=== PATIENT | female | born 1975 | race Caucasian/White ===

== ENCOUNTER 2020-05-10 09:03 | Emergency (ER) | payer OTHER, SELFPAY ==
--- NOTE | ~2020-05-10 | XR_ITS ---
EXAMINATION: XR ankle LT min 3V DATE: 05/10/2020 09:29 INDICATION: Left ankle pain TECHNIQUE: Anteroposterior, lateral, mortise, and additional oblique view of the ankle were obtained. COMPARISON: None. FINDINGS: There is no fracture, dislocation, or subluxation. The bones, soft tissues, and joint space s are normal. IMPRESSION: 1. No acute osseous abnormality. Reviewed, dictated and finalized at location A.
[2020-05-10 09:14] VITALS: BP 139/88; PULSE 82; RESP 18; TEMP 37.1; O2SAT 98
--- NOTE | 2020-05-10 09:17 | ED.LOWEXIN ---
HPI - Extremity Injury (Lower) General Chief Complaint: Extremity Injury, Lower Stated Complaint: left ankle injury Time Seen by Provider: 05/10/20 09:17 Source: patient and RN notes reviewed History of Present Illness HPI Narrative: Patient is a 44-year-old female who presents the urgent care with complaints of left foot/heel pain. Patient states that she stepped off the step this morning, felt extreme pain going through the bottom of her foot and through to her heel which then caused her to roll her left foot and ankle hearing a pop . Patient states that she has fractured the ankle in the past but denies of any foreign bodies in the lower leg/left foot ankle. Patient denies actually falling or hitting her head. Patient states she took ibuprofen prior to her arrival. No other acute complaints or injuries. No acute distress noted. Patient is ambulating on the foot. Patient aware of the plan of care. Related Data Home Medications Medication Instructions Recorded Confirmed No Home Medications 05/10/20 05/10/20 Allergies Allergy/AdvReac Type Severity Reaction Status Date / Time No Known Allergies Allergy Unknown Verified 05/10/20 09:21 Review of Systems Review of Systems: Narrative: CONSTITUTIONAL: Denies fever, chills, or sweats. EYES: Denies visual changes, redness, or discharge. ENT: Denies rhinorrhea, congestion, sore throat, or otalgia. CARDIOVASCULAR: Denies chest pain, palpitations, or edema. RESPIRATORY: Denies cough or dyspnea. GASTROINTESTINAL: Denies abdominal pain, nausea, vomiting, or diarrhea. GENITOURINARY: Denies dysuria or hematuria. SKIN: Denies rash or itching. MUSCULOSKELETAL: Reports of left foot and heel pain NEUROLOGIC: Denies headache, numbness, or weakness. All other systems reviewed are negative, except as documented in HPI. PMFSH Comments At the time of my signature, I reviewed and agree with the nursing past medical, surgical, social, and family history. There is no relevant family history pertinent to the patient complaint. Exam Narrative: Exam Narrative: GENERAL: This is a well-nourished, well-developed patient, in no apparent distress. HEAD: normocephalic, atraumatic. EYES: PERRL. Sclera clear/white. Vision is grossly intact. EARS: External ears normal NOSE: External nose normal with no obvious nasal discharge, nares without redness, no rhinorrhea. THROAT: Mucous membranes moist NECK: Neck supple SKIN: warm, intact with no suspicious lesions or rash, good texture and turgor. NEURO: awake, alert, and oriented to person, place and time. There were no obvious focal neurologic abnormalities. EXTREMITIES: Very mild edema and ecchymosis noted anterior to the medial heel/on the medial left foot. Pain with flexion. Positive strong pedal pulse with capillary refill less than 2 seconds. No obvious deformity or fracture to the left lower extremity Course Vital Signs Vital signs: Vital Signs Temperature 98.8 F 05/10/20 09:14 Pulse Rate 82 05/10/20 09:14 Respiratory Rate 18 05/10/20 09:14 Blood Pressure 139/88 05/10/20 09:14 Pulse Oximetry 98 05/10/20 09:14 Temperature 98.8 F 05/10/20 09:14 Pulse Rate 82 05/10/20 09:14 Respiratory Rate 18 05/10/20 09:14 Blood Pressure 139/88 05/10/20 09:14 Pulse Oximetry 98 05/10/20 09:14 Reviewed MDM - Extremity Injury (Lower) MDM Narrative Medical decision making narrative: Reviewed x-ray results with the patient. She is aware that x-ray was negative for fracture or deformity. Advised the patient to use the Bipin wrap as directed and wear supportive shoe if needing to ambulate. Try to refrain from weightbearing activity or any strenuous activity for the next 24 to 48 hours. Continue normal activity as tolerated. Elevate and use ice/Tylenol/ibuprofen as needed for pain. Follow-up with your PCP within 2 to 5 days or for worsening symptoms or failure to improve. Differential Diagnosis Differential diagnosis: Likely an
== END 2020-05-10 09:40 | disposition home or self-care (01) ==
PROVIDERS: Emergency Provider Nurse Practitioner Family; PCP Family Medicine
DX: M79.672 Pain in left foot (principal)
CPT/HCPCS: 73610; 99213; G0463

== ENCOUNTER 2024-06-04 11:44 | Observation (INO) | payer OTHER, SELFPAY ==
[2024-06-04] VITALS (29 sets, daily range): BP systolic 138–155; BP diastolic 67–99; PULSE 67–90; RESP 9–29; TEMP 36.5–36.9; O2SAT 96–100; BMI 33.7
--- NOTE | ~2024-06-04 | XR_ITS ---
XR chest 2V Ordering provider: Lucas Bravo MD History: 48 years Female with . mid chest pain . Comparison: June 17, 2016 FINDINGS: MEDIASTINUM: The cardiac silhouette is not enlarged. LUNGS: No infiltrates, effusions or pneumothorax. OTHER: No free air under the diaphragm. IMPRESSION: No acute cardiopulmonary pathology. Reviewed, dictated and finalized at location A.
--- NOTE | 2024-06-04 11:47 | ECG_ITS ---
Test Date: 2024-06-04 11:53:39 Measurements Intervals [place] Rate: 67 P: 46 ID: 145 QRS: 29 QRSD: 76 T: 40 QT: 393 QTc: 415 Interpretive Statements SINUS RHYTHM BASELINE ARTIFACT- I, II, III, AVR, AVL, AVF, V1 NORMAL ECG No previous ECG available for comparison Electronically Signed On 06-04-2024 12:02:47 CDT by Сергей Diamond D.O.
[2024-06-04 12:01] LABS: Basophils Percent Auto 0.5 % (0.2-1.2); Eosinophils Absolute Auto 0.1 K/mm3 (0-0.3); Eosinophils Percent Auto 0.9 % (0-4.4); Hematocrit 41.9 % (37.0-47.0); Immature Granulocyte Absolute 0.02 K/mm3 (0.00-0.031); Immature Granulocyte Percent A 0.2 % (0-0.5); Lymphocytes Absolute Auto 1.91 K/mm3 (0.9-3.2); Lymphocytes Percent Auto 21.6 % (18.3-44.2); Mean Corpuscular HGB Conc 33.4 g/dl (32-36); Mean Corpuscular Hemoglobin 29.3 pg (26-34); Mean Corpuscular Volume 87.7 fl (80-100); Mean Platelet Volume 10.5 fl (7.4-10.4); Monocytes Absolute Auto 0.6 K/mm3 (0.1-0.6); Monocytes Percent Auto 6.4 % (2.6-8.5); Neutrophils Absolute Auto 6.2 K/mm3 (1.3-6.7); Neutrophils Percent Auto 70.4 % (45.5-73.1); Platelet Count Result 266 k/mm3 (150-375); Red Blood Count 4.78 M/mm3 (4.2-5.4); Red Cell Distribution Width 13.6 % (11.5-14.5); White Blood Count 8.8 K/mm3 (4.5-10.0)
[2024-06-04] MEDS: ASPIRIN 81 MG CHEWABLE TABLET 324 MG PO (12:11)
[2024-06-04 12:13] LABS: Partial Thromboplastin Time 30.9 Seconds (22.3-36.8)
[2024-06-04 12:14] LABS: Alanine Aminotransferase 42 U/L (6-35); Albumin Level 3.9 g/dL (3.5-5.1); Alkaline Phosphatase 108 U/L (38-126); Anion Gap 12 mmol/L (4-12); Aspartate Amino Transferase 34 U/L (14-36); Bilirubin,Total 1.2 mg/dL (0.2-1.3); Blood Urea Nitrogen 13 mg/dL (7-17); Carbon Dioxide 21 mmol/L (22-30); Chloride 103 mmol/L (98-107); Estimated CRCL calculation 64 ml/min; Estimated Glomerular Filt Rate > 60; Glucose 95 mg/dL (65-110); Lipase 92 U/L (23-300); Potassium 3.7 mmol/L (3.4-5.0); Sodium 136 mmol/L (137-145)
[2024-06-04 12:26] LABS: Troponin I < 0.012 ng/mL (0.000-0.034)
[2024-06-04 12:30] LABS: Add Urine Microscopic? YES; Appearance Urine Clear (Clear); Bacteria Urine Rare /hpf; Bilirubin Urine Negative (Negative); Blood Urine Negative (Negative); Color Urine Yellow (Yellow); Glucose Urine UA Negative (Negative); Ketones Urine Negative (Negative); Leukocyte Esterase Ur Trace LEU/UL (Negative); Nitrate Urine Negative (Negative); Non Pathogenic Casts 0-2; Protein Urine Negative (Negative); RBC Urine 0-2 /hpf (0-2); Specific Grav Ur 1.012 (1.001-1.035); Squamous Epithelial Cell Urine Occasional /hpf (Few); Urobilinogen Urine 0.2 mg/dL (<2.0)
--- NOTE | 2024-06-04 13:47 | ED.CHESTPAIN ---
HPI - Chest Pain General Chief Complaint: Chest Pain Stated Complaint: CHEST PAIN Time Seen by Provider: 06/04/24 11:56 History of Present Illness HPI narrative: Patient is a 48-year-old female who presents ER with chest pain. Began this morning while she is alert. Associated with nausea and dizziness. No fevers or chills or sweats. Left-sided, radiates left shoulder and down the arm. She took a nitroglycerin without improvement. EMS arrived and she got a 2nd nitroglycerin and she went down to 12/27. 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 She underwent cardiac catheterization last month which showed a 50% mid LAD stenosis as well as 30% stenosis distal in the LAD. The left circumflex at 30% stenosis. The right coronary artery had 30% proximal and mid stenosis. She did not undergo any stenting. She has yet to have her follow up. The same time patient had some blood in ulcers that were not bleeding on an EGD and she is found have a small hiatal hernia. Related Data Home Medications Medication Instructions Recorded Confirmed albuterol sulfate 90 mcg/actuation 2 puff inhalation Q4-6H PRN sob 06/04/24 06/04/24 aerosol inhaler atorvastatin 80 mg tablet 80 mg PO DAILY 06/04/24 06/04/24 ezetimibe 10 mg tablet 10 mg PO DAILY 06/04/24 06/04/24 famotidine 20 mg tablet 20 mg PO BID 06/04/24 06/04/24 fluoxetine 20 mg capsule 20 mg PO DAILY 06/04/24 06/04/24 isosorbide mononitrate 30 mg 30 mg PO DAILY 06/04/24 06/04/24 tablet,extended release 24 hr losartan 100 1 tablet PO DAILY 06/04/24 06/04/24 mg-hydrochlorothiazide 25 mg tablet metoprolol succinate 50 mg 50 mg PO HS 06/04/24 06/04/24 tablet,extended release 24 hr nitroglycerin 0.4 mg sublingual 0.4 mg sublingual PRN chest pain 06/04/24 06/04/24 tablet pantoprazole 40 mg tablet,delayed 40 mg PO DAILY 06/04/24 06/04/24 release ropinirole 1 mg tablet 20 mg PO HS 06/04/24 06/04/24 Allergies Allergy/AdvReac Type Severity Reaction Status Date / Time No Known Allergies Allergy Unknown Verified 05/10/20 09:21 Review of Systems Review of Systems: All systems reviewed & are unremarkable except as noted in HPI and below Constitutional: Constitutional: Reports no additional constitutional complaints ENT: Reports system reviewed and no additional complaints, except as documented Cardiovascular: Cardiovascular: Reports no additional cardiovascular complaints Respiratory: Respiratory: Reports no additional respiratory complaints Gastrointestinal: Gastrointestinal: Denies abdominal pain, Denies diarrhea, Reports nausea and Denies vomiting PMFSH Past Medical History Medical History (Updated 06/04/24 @ 23:08 by Kike Hairston MD) Anxiety Coronary artery disease Depression Gastric ulcer (04/2024) Attributed to NSAIDs. Hiatal hernia Hypertension Surgical History Surgical History (Updated 06/04/24 @ 22:34 by Lolita Hitchcock PA-C) History of cholecystectomy History of fusion of cervical spine History of left heart catheterization (04/2024) [facility]. Nonobstructing disease including 50% mid and 30% distal LAD stenosis, 30% left circumflex stenosis, and 30% mid and proximal right coronary artery stenosis. History of tubal ligation Social History Social History (Updated 06/04/24 @ 22:33 by Lolita Hitchcock PA-C) Social History: Surrogate medical decision maker: Roc Ayon, significant other. Code status: Full code. Smoking status: Former smoker Alcohol intake: never Substance use: never Do You Feel Safe in your Home?: Yes Lack of Transportation: No Lack of Food: Never True Current Housing: I Have Housing Concerned About Future Housing: No Difficulty Paying Gas/Electric Bills: No Difficulty Paying for Meds: No Currently Unemployed: No Education: High School Diploma/GED Difficulty w/ Childcare or Family Care: No Spiritual care concerns: No Exam Narrative: GENERAL: Well
[2024-06-04] MEDS: ONDANSETRON INJ 4 MG/2 ML VIAL IV PUSH (14:00)
--- NOTE | 2024-06-04 14:01 | PC.NURSE ---
Patient indicates that she is feeling shaky. Bedside glucose ordered
[2024-06-04 14:10] LABS: Glucose Point of Care 87 mg/dl (65-105)
--- NOTE | 2024-06-04 14:10 | PC.NURSE ---
[facility] [address]
--- NOTE | 2024-06-04 14:53 | ECG_ITS ---
Test Date: 2024-06-04 14:55:56 Measurements Intervals [place] Rate: 73 P: 32 CT: 141 QRS: 23 QRSD: 80 T: 35 QT: 389 QTc: 429 Interpretive Statements SINUS RHYTHM DELAYED PRECORDIAL R/S TRANSITION LOW QRS VOLTAGE IN PRECORDIAL LEADS BASELINE ARTIFACT- I, II, III, AVR, AVL, AVF, V2 BORDERLINE ECG Electronically Signed On 06-04-2024 14:56:58 CDT by Сергей Diamond D.O.
[2024-06-04 15:20] LABS: Troponin I < 0.012 ng/mL (0.000-0.034)
--- NOTE | 2024-06-04 17:27 | ECG_ITS ---
Test Date: 2024-06-04 17:24:00 Measurements Intervals [place] Rate: 85 P: 55 NM: 141 QRS: 11 QRSD: 79 T: 34 QT: 376 QTc: 449 Interpretive Statements SINUS RHYTHM DELAYED PRECORDIAL R/S TRANSITION BASELINE WANDER- I, II, III, AVR, AVL, AVF, V1-V6 BORDERLINE ECG Compared to ECG 06/04/2024 14:55:56 NO SIGNIFICANT CHANGE Electronically Signed On 06-05-2024 09:20:47 CDT by Сергей Diamond D.O.
--- NOTE | 2024-06-04 17:32 | PC.NURSE ---
This RN called dietary and ordered a dinner tray for pt at this time.
[2024-06-04 18:07] LABS: Troponin I < 0.012 ng/mL (0.000-0.034)
--- NOTE | 2024-06-04 18:25 | PM.IMHP ---
H&P: HPI History of Present Illness Date/Time: 06/04/24 18:25 Chief Complaint: Chest pain. Narrative: This is a pleasant 48-year-old female with coronary artery disease, hypertension, dyslipidemia, gastric ulcers, and hiatal hernia who presented to the emergency department via EMS from work for evaluation of chest pain. The patient provides the following history. She was admitted to [facility] last month with chest pain and was transferred to [facility] for cardiology and GI consultations. Cardiac catheterization done at that time showed nonobstructing disease (50% mid LAD and 30% distal LAD stenosis, 30% left circumflex stenosis, and 30% mid and proximal right coronary artery stenosis) for which she was treated medically. EGD reportedly showed nonbleeding gastric ulcer which were attributed to NSAID use as well as a small hiatal hernia. She has had some episodes of chest pain and today while at work she developed a pressure and tight like pain in the left anterior chest which radiated to the back and shoulder blade associated with nausea, sweats, lightheadedness, and fatigue. Nitroglycerin has helped somewhat. Of note, she is not on aspirin at home due to the aforementioned gastric ulcers; she also reports still having occasional episodes of bright red blood per rectum for which she has not has a colonoscopy. She denies syncope, pleuritic pain, calf pain, lower extremity edema, epigastric and abdominal pain, and vomiting. In the ED: Blood pressures have been running in the 140s 150 systolic. The remainder of her vital signs are stable. CMP and CBC were pretty unremarkable and her initial troponin was negative. Chest x-ray showed no acute cardiopulmonary pathology. EKG showed sinus rhythm. Due to ongoing symptoms and her recent catheterization result, she is being admitted for close monitoring and Cardiology consultation. Review of Systems Review of Systems: 12 systems were reviewed and are negative except for as per HPI. [facility] Past Medical History Medical History (Updated 06/04/24 @ 22:36 by Lolita Hitchcock PA-C) Anxiety Coronary artery disease Depression Gastric ulcer (04/2024) Attributed to NSAIDs. Hiatal hernia Hypertension Surgical History Surgical History (Updated 06/04/24 @ 22:34 by Lolita Hitchcock PA-C) History of cholecystectomy History of fusion of cervical spine History of left heart catheterization (04/2024) [facility]. Nonobstructing disease including 50% mid and 30% distal LAD stenosis, 30% left circumflex stenosis, and 30% mid and proximal right coronary artery stenosis. History of tubal ligation Social History Social History (Updated 06/04/24 @ 22:33 by Lolita Hitchcock PA-C) Social History: Surrogate medical decision maker: Roc Ayon, significant other. Code status: Full code. Smoking status: Former smoker Alcohol intake: never Substance use: never Do You Feel Safe in your Home?: Yes Lack of Transportation: No Lack of Food: Never True Current Housing: I Have Housing Concerned About Future Housing: No Difficulty Paying Gas/Electric Bills: No Difficulty Paying for Meds: No Currently Unemployed: No Education: High School Diploma/GED Difficulty w/ Childcare or Family Care: No Spiritual care concerns: No Meds Home Medications and Allergies Home Medications Medication Instructions Recorded Confirmed Type albuterol sulfate 90 mcg/actuation 2 puff inhalation Q4-6H PRN sob 06/04/24 06/04/24 History aerosol inhaler atorvastatin 80 mg tablet 80 mg PO DAILY 06/04/24 06/04/24 History ezetimibe 10 mg tablet 10 mg PO DAILY 06/04/24 06/04/24 History famotidine 20 mg tablet 20 mg PO BID 06/04/24 06/04/24 History fluoxetine 20 mg capsule 20 mg PO DAILY 06/04/24 06/04/24 History isosorbide mononitrate 30 mg 30 mg PO DAILY 06/04/24 06/04/24 History tablet,extended release 24 hr losartan 100 1 tablet PO DAILY 06/04/24 06/04/24 History mg-h
--- NOTE | 2024-06-04 19:29 | ADMGEN ---
This patient, Ting Pollock, was admitted to IMU Room 205-02. Patient/family oriented to hospital policies and general routines including ID bracelet, bed and alarms, visiting hours, pain management, procedures, bathroom and other care routines, personal items, smoking policy, room service/diet, and visiting hours. Information on how to activate the Rapid Response Team has been discussed. Patient/Family are encouraged to report perceived risks to care and to ask questions if they do not understand what they are told or what they should do.
--- NOTE | 2024-06-04 19:37 | PM.CNCAR ---
Assessment and Plan Assessment and plan (1) Chest pain: Code(s): R07.9 - Chest pain, unspecified Status: Acute Assessment and Plan: [place] r/o by serial troponin and EKG. This could be coronary vasospasms or microvascular dysfunction, or anxiety, musculoskeletal/fibromyalgia. On Imdur. Start Ranexa 500 mg BID. (2) Hypertension: Code(s): I10 - Essential (primary) hypertension Status: Acute Assessment and Plan: Stable. (3) Coronary artery disease: Code(s): I25.10 - Atherosclerotic heart disease of [place] coronary artery without angina pectoris Status: Acute Assessment and Plan: 05/11/24 [facility] LHC: 50% mid LAD and 30% distal LAD stenosis, 30% left circumflex stenosis, and 30% mid and proximal right coronary artery stenosis. Her regular sports management internship is Dr. Castanon and Dr. Solorzano with [facility]. History of Present Illness History of Present Illness Consult date/time: 06/04/24 19:37 Reason For Visit: CHEST PAIN Narrative: 48 yr old woman presents to ER with chest pain. She has a history of mild CAD, hypertension, gastric ulcers from Advil use, anxiety, former smoking. Her regular sports management internship is Dr. Castanon and Dr. Solorzano with [facility]. States she has intermittent chest pressure at rest and vague symptoms including feeling hot, nausea, tingling in her hands and tingling on her thigh. Reports she had LHC at [facility] on 05/11/24 which showed mild-mod CAD. She was told her cp is probably due to cardiac microvascular dysfunction. She is on Imdur and takes NTG prn which helps. Normally she can walk a few blocks without any problems. Denies orthopnea, PND, edema, dizziness, palpitations. Review of Systems Review of Systems: All systems reviewed & are unremarkable except as noted in HPI and below Constitutional: Constitutional: Reports as per HPI, Denies chills and Denies fatigue Cardiovascular: Cardiovascular: Reports as per HPI, Reports chest pain at rest and Denies irregular heart rhythm Respiratory: Respiratory: Reports as per HPI and Denies dyspnea Gastrointestinal: Gastrointestinal: Reports as per HPI and Denies abdominal pain Genitourinary: Genitourinary: Reports as per HPI and Denies urinary frequency Musculoskeletal: Musculoskeletal: Reports as per HPI Neurologic: Reports as per HPI, Denies dizziness and Denies syncope [facility] Past Medical History Medical History (Updated 06/04/24 @ 18:30 by Lolita Hitchcock PA-C) Anxiety Coronary artery disease Depression Hiatal hernia Hypertension Surgical History Surgical History (Updated 06/04/24 @ 18:30 by Lolita Hitchcock PA-C) History of left heart catheterization (04/2024) [facility]. Nonobstructing disease including 50% mid and 30% distal LAD stenosis, 30% left circumflex stenosis, and 30% mid and proximal right coronary artery stenosis. Social History Social History (Updated 06/04/24 @ 18:30 by Lolita Hitchcock PA-C) Social History: Surrogate medical decision maker: Code status: Full code. Smoking status: Former smoker Alcohol intake: never Substance use: never Do You Feel Safe in your Home?: Yes Lack of Transportation: No Lack of Food: Never True Current Housing: I Have Housing Concerned About Future Housing: No Difficulty Paying Gas/Electric Bills: No Difficulty Paying for Meds: No Currently Unemployed: No Education: High School Diploma/GED Difficulty w/ Childcare or Family Care: No Spiritual care concerns: No Meds Home Medications and Allergies Home Medications Medication Instructions Recorded Confirmed Type No Home Medications 05/10/20 05/10/20 History Allergies Allergy/AdvReac Type Severity Reaction Status Date / Time No Known Allergies Allergy Unknown Verified 05/10/20 09:21 Vital Signs Vital Signs - 24 hr 06/04/24 11:50 06/04/24 13:07 06/04/24 13:41 Temperature 98.1 F Pulse Rate 68 70
[2024-06-04] MEDS: RANOLAZINE 500 MG TAB.ER.12H PO (21:04)
[2024-06-04] MEDS: rOPINIRole HCL 1 MG TABLET PO (23:26)
[2024-06-05] VITALS (10 sets, daily range): BP systolic 126–137; BP diastolic 73–98; PULSE 63–75; RESP 16–20; TEMP 36.5–36.7; O2SAT 98–99
[2024-06-05] MEDS: METOPROLOL SUCCINATE EXT REL 50 MG TABCR PO (00:43)
[2024-06-05 05:13] LABS: Hematocrit 43.8 % (37.0-47.0); Hemoglobin 14.6 g/dL (12.0-15.0); Mean Corpuscular HGB Conc 33.3 g/dl (32-36); Mean Corpuscular Hemoglobin 29.5 pg (26-34); Mean Corpuscular Volume 88.5 fl (80-100); Mean Platelet Volume 10.5 fl (7.4-10.4); Platelet Count Result 285 k/mm3 (150-375); Red Blood Count 4.95 M/mm3 (4.2-5.4); Red Cell Distribution Width 13.8 % (11.5-14.5); White Blood Count 9.1 K/mm3 (4.5-10.0)
[2024-06-05 05:29] LABS: Anion Gap 10 mmol/L (4-12); Blood Urea Nitrogen 15 mg/dL (7-17); Calcium 8.9 mg/dL (8.4-10.2); Carbon Dioxide 24 mmol/L (22-30); Chloride 103 mmol/L (98-107); Estimated CRCL calculation 53 ml/min; Estimated Glomerular Filt Rate 53; Glucose 100 mg/dL (65-110); Magnesium 2.2 mg/dL (1.6-2.3); Sodium 137 mmol/L (137-145)
--- NOTE | 2024-06-05 07:54 | PM.PNCARD ---
Progress Note: A&P Assessment and Plan (1) Chest pain: Code(s): R07.9 - Chest pain, unspecified Status: Acute Assessment and Plan: [place] r/o by serial troponin and EKG. This could be coronary vasospasms or microvascular dysfunction, or anxiety, musculoskeletal/fibromyalgia. On Imdur. Started Ranexa 500 mg BID. January d/c home from cardiology standpoint and f/u with her regular corporate investigator, Dr. Castanon or Dr. Solorzano with [facility]. (2) Hypertension: Code(s): I10 - Essential (primary) hypertension Status: Acute Assessment and Plan: Stable. (3) Coronary artery disease: Code(s): I25.10 - Atherosclerotic heart disease of [place] coronary artery without angina pectoris Status: Acute Assessment and Plan: 05/11/[address] [facility] LHC: 50% mid LAD and 30% distal LAD stenosis, 30% left circumflex stenosis, and 30% mid and proximal right coronary artery stenosis. Her regular corporate investigator is Dr. Castanon and Dr. Solorzano with [facility]. Subjective Date/time seen: 06/05/24 07:54 Interval history: No chest pain or sob right now. Exam Const: General: cooperative, healthy appearing and comfortable Orientation/consciousness: oriented to person, oriented to place and oriented to time Resp: Auscultation: clear to auscultation bilaterally, no crackles, no rales, no rhonchi and no wheezes Cardio: Rate: regular rate Rhythm: regular rhythm Heart sounds: no murmurs Peripheral pulses: dorsalis pedis present Neuro: General: oriented to person, oriented to place and oriented to time Extrem: Right lower extremity: no edema Left lower extremity: no edema Objective Data Vital Signs Vital Signs: Vital Signs - 24 hr 06/04/24 11:50 06/04/24 13:07 06/04/24 13:41 Temperature 98.1 F Pulse Rate 68 70 Respiratory Rate 15 17 Blood Pressure 138/85 138/87 Pulse Oximetry 97 98 Oxygen Delivery Room Air Room Air 06/04/24 13:42 06/04/24 13:59 06/04/24 11:57 Temperature Pulse Rate 70 76 71 Respiratory Rate 17 17 Blood Pressure 155/97 H 140/98 H Pulse Oximetry 98 98 Oxygen Delivery 06/04/24 12:01 06/04/24 13:43 06/04/24 14:01 Temperature Pulse Rate 72 68 78 Respiratory Rate 13 15 20 Blood Pressure 138/85 138/87 155/97 H Pulse Oximetry 97 97 98 Oxygen Delivery 06/04/24 15:14 06/04/24 14:45 06/04/24 14:47 Temperature Pulse Rate 90 73 73 Respiratory Rate 20 17 15 Blood Pressure 148/86 H 148/86 H Pulse Oximetry 97 98 Oxygen Delivery 06/04/24 15:00 06/04/24 15:15 06/04/24 15:30 Temperature Pulse Rate 81 76 74 Respiratory Rate 13 19 20 Blood Pressure Pulse Oximetry 97 97 98 Oxygen Delivery 06/04/24 15:31 06/04/24 15:45 06/04/24 16:00 Temperature Pulse Rate 71 80 77 Respiratory Rate 21 H 15 21 H Blood Pressure 142/79 H Pulse Oximetry 98 97 97 Oxygen Delivery 06/04/24 16:15 06/04/24 16:16 06/04/24 16:30 Temperature Pulse Rate 83 76 73 Respiratory Rate 16 9 L 19 Blood Pressure 150/87 H Pulse Oximetry 97 97 97 Oxygen Delivery 06/04/24 16:45 06/04/24 17:00 06/04/24 17:02 Temperature Pulse Rate 71 78 75 Respiratory Rate 18 27 H 22 H Blood Pressure 152/76 H Pulse Oximetry 98 99 100 Oxygen Delivery 06/04/24 17:15 06/04/24 18:08 06/04/24 18:28 Temperature 98.4 F Pulse Rate 73 67 70 Respiratory Rate 29 H 17 18 Blood Pressure 142/99 H 143/67 H Pulse Oximetry 100 96 97 Oxygen Delivery 06/04/24 20:27 06/04/24 20:00 06/04/24 20:00 Temperature 97.7 F Pulse Rate 74 74 81 Respiratory Rate 20 20 Blood Pressure 152/80 H Pulse Oximetry 98 98 Oxygen Delivery Room Air 06/04/24 22:00 06/05/24 00:20 06/05/24 00:43 Temperature 97.7 F Pulse Rate 74 74 75 Respiratory Rate 18 Blood Pressure 126/98 H Pulse Oximetry 98 Oxygen Delivery 06/05/24 00:00 06/05/24 04:20 06/05/24 00:00 Temperature 98.1 F Pulse Rate 75 63 71 Respiratory Ra
[2024-06-05] MEDS: ATORVASTATIN 40 MG TABLET 80 MG PO (08:01)
[2024-06-05] MEDS: PANTOPRAZOLE 40 MG TABLET PO (08:02)
[2024-06-05] MEDS: RANOLAZINE 500 MG TAB.ER.12H PO (08:02)
[2024-06-05] MEDS: EZETIMIBE 10 MG TABLET PO (08:02)
[2024-06-05] MEDS: FAMOTIDINE 20 MG TABLET PO (08:02)
[2024-06-05] MEDS: hydroCHLOROthiazide 25 MG TABLET PO (08:02)
[2024-06-05] MEDS: FLUoxetine HCL 20 MG CAPSULE PO (08:02)
[2024-06-05] MEDS: ISOSORBIDE MONONITRATE 30 MG TAB.ER.24H PO (08:02)
[2024-06-05] MEDS: LOSARTAN POTASSIUM 100 MG TABLET PO (08:02)
--- NOTE | 2024-06-05 10:37 | PM.DS ---
DS: Admitting Diagnosis Discharge Date 06/05/24 Admitting Diagnosis Chest pain Coronary artery disease Hypertension Blood per rectum DS: Discharge Diagnosis Discharge Diagnosis (1) Chest pain: Code(s): R07.9 - Chest pain, unspecified Status: Acute Assessment and Plan: Chronic issue for patient. Recently had heart catheterization 1 month ago at [facility]. Recent heart catheterization demonstrating 50% obstruction to the mid LAD and 30% to the distal LAD. There is 30% to the circumflex and 30% mid and proximal RCA. Medical management was chosen. Patient is on isosorbide. 2- troponins have ruled out ACS. Cardiology has evaluated in suggest possible vasospasm or microvascular dysfunction, anxiety or fibromyalgia. Ranexa 500 mg b.i.d. has been started. She will be sent home with prescription. No further workup necessary according to Cardiology at this time. They recommend follow-up with patient's inspector rough castings which are Dr. Castanon and Dr. Solorzano with [facility]. (2) Coronary artery disease: Code(s): I25.10 - Atherosclerotic heart disease of [place] coronary artery without angina pectoris Status: Chronic Assessment and Plan: See above 1. (3) Hypertension: Code(s): I10 - Essential (primary) hypertension Status: Chronic Assessment and Plan: Continue all home medications. Blood pressure here 137/87 is stable. (4) Blood per rectum: Code(s): K62.5 - Hemorrhage of anus and rectum Status: Chronic Assessment and Plan: Patient has GI with whom she follows. She has no acute bleed at this time. Recommend following up with GI for colonoscopy as well as repeat EGD to evaluate safety of resuming aspirin in the setting of coronary artery disease. Hemoglobin stable at 14.6. DS: Summary Hospital Course Reason for hospitalization: Chest pain Hospital Course: This is a very pleasant 48-year-old female patient with past medical history significant known coronary artery disease, hypertension, hyperlipidemia, GI ulcers, hiatal hernia who presented to the emergency room with chest pain and was subsequently admitted to Hospital on June 05, 2024. Patient is an established patient of cardiology office at [facility] Dr. Castanon. She underwent left heart catheterization last month at [facility] that showed nonobstructive disease, (see 50% mid LAD and 30% distal LAD, 30% circumflex stenosis and 30% mid and proximal RCA stenosis). Medical management was chosen. Patient states yesterday she was at work and she started having a heaviness in her chest with associated nausea, back and shoulder pain as well as sweats and lightheadedness. She did take nitroglycerin that did improve her symptoms. Patient is unable to take aspirin secondary to history of GI ulcers. Patient was also evaluated by GI during her recent hospitalization at [facility] and had EGD that showed nonbleeding gastric ulcerations. Patient states she has been having some episodes of bright red bleeding per rectum and GI did not perform colonoscopy during that admission. She is not complaining of bright red bleeding at this current time. Patient was admitted to the hospital in IMU for cardiology evaluation. She was started on Ranexa 500 mg b.i.d. last evening. Patient states this morning that her symptoms have completely resolved. She has no other new complaints or concerns. ACS has been ruled out with serial troponins and EKGs. Patient is comfortable with discharge at this time with follow-up with her inspector rough castings, Dr. Castanon. Our cardiology has signed off. Status at Discharge Cognitive/behavioral status at discharge: At baseline Functional status at discharge: independent ambulation Overall status at discharge: patient is back to baseline Time Spent with Patient Time attestation: Total time spent providing and/or coordinating discharge services: Time spent: Less than
== END 2024-06-05 11:28 | disposition home or self-care (01) ==
LOC: ANHED 12:29 → ANHIMU 17:58
PROVIDERS: Emergency Medicine; Physician Assistant; Admitting Provider General Practice; Emergency Provider Emergency Medicine; Visit Provider Nurse Practitioner Adult Health
DX: R07.9 Chest pain, unspecified (principal); K62.5 Hemorrhage of anus and rectum; I25.10 Atherosclerotic heart disease of native coronary artery without angina pectoris; I10 Essential (primary) hypertension; F41.9 Anxiety disorder, unspecified; Z87.11 Personal history of peptic ulcer disease; Z87.891 Personal history of nicotine dependence; Z79.51 Long term (current) use of inhaled steroids; Z79.899 Other long term (current) drug therapy
CPT/HCPCS: 36415; 71046; 80048; 80053; 81001; 82948; 83690; 83735; 84484; 85025; 85027; 85610; 85730; 87086; 87088; 93005; 96374; 99285; A9270; G0378; J2405